=== PATIENT | male | born 1950 | race African-American/Black ===

== ENCOUNTER → 2018-01-15 | Outpatient (CLI) | payer MEDICARE, OTHER | END | disposition home or self-care (01) | LOC: RAD 13:52 | DX: R76.11 Nonspecific reaction to tuberculin skin test without active tuberculosis (principal) | CPT/HCPCS: 71046 ==

== ENCOUNTER 2021-02-14 16:44 | Emergency (ER) | payer MEDICARE, MEDICAID ==
[~2021-02-14] VITALS: Ht 177.8 cm; Wt 100.0 kg
[~2021-02-14 16:44] MED LIST: INSU100V31 SQ; INSU100V8 SQ; SIMV80TA17 PO
--- NOTE | 2021-02-14 17:35 | RAD ---
Exam: CT head INDICATION: Near syncope, dizzy TECHNIQUE: Sequential axial images through the head were obtained without the administration of IV co ntrast. Exposure: One or more of the following in the visualized dose reduction techniques were utilized for this examination: 1. Automated exposure control 2. Adjustment of the MA and/or KV according to patient size 3. Use of iterative of reconstructive technique Comparisons: None FINDINGS: No focal parenchymal lesion or hemorrhage is identified. There is no midline shift or sulcal effaceme nt. Chronic appearing infarct in the right occipital lobe. There is patchy evidence in the periventricula r white matter. Newman-white distinction is preserved. The ventricular system is within normal limits without compression hydrocephalus. The basal cisterns are well maintained. The visualized portions of the paranasal sinuses and mastoid air cells are well-pneumatized. No acute fractures. There is diffuse skin thickening overlying the posterior neck with at least 2 small fluid collections largest measuring 1 cm IMPRESSION: 1. Hypodensity in the right occipital lobe and patchy hypodensity in the periventricular white matte r. This is technically age indeterminate without recent prior imaging. If there are concerns for acut e ischemia MRI would better evaluate. 2. Persistent findings at the posterior neck soft tissues which appear stable when compared to 2016. Correlate with physical exam. Electronically signed by: Nidia Cruz MD (02/14/2021 5:33 PM) [facility]
[2021-02-14 17:52] LABS: BASO % 1 % (0-3); EOS # 0.2 x10^3/uL (0.0-0.7); EOS % 2 % (0-3); HEMATOCRIT 33.9 % (39.0-53.0); HEMOGLOBIN 11.7 g/dL (13.0-17.5); LYMPH # 1.8 x10^3/uL (1.0-4.8); LYMPH % 23 % (24-48); MEAN CORPUSCULAR HEMOGLOBIN 31 pg (25-35); MEAN CORPUSCULAR HGB CONC 35 g/dL (31-37); MEAN CORPUSCULAR VOLUME 88 fL (79-100); MONO # 0.7 x10^3/uL (0.0-1.1); MONO % 9 % (0-9); NEUT # 5.1 x10^3/uL (1.8-7.7); NEUT % 66 % (31-73); PLATELET COUNT 147 x10^3/uL (140-400); RED BLOOD COUNT 3.84 x10^6/uL (4.30-5.70); RED CELL DISTRIBUTION WIDTH 13.8 % (11.5-14.5); WHITE BLOOD COUNT 7.8 x10^3/uL (4.0-11.0)
[2021-02-14 18:07] LABS: CALCIUM 8.7 mg/dL (8.5-10.1); CREATININE 1.8 mg/dL (0.7-1.3); GFR 45.5; POTASSIUM 4.3 mmol/L (3.5-5.1)
[2021-02-14 18:08] LABS: BILIRUBIN,URINE NEGATIVE (NEG); CLARITY,URINE CLEAR; COLOR,URINE YELLOW; NITRITE,URINE NEGATIVE (NEG); PROTEIN,URINE 30 mg/dL (NEG-TRACE)
[2021-02-14 18:13] LABS: ALBUMIN 2.8 g/dL (3.4-5.0); ALBUMIN/GLOBULIN RATIO 0.7 (1.0-1.7); MAGNESIUM 1.9 mg/dL (1.8-2.4); TOTAL BILIRUBIN 0.6 mg/dL (0.2-1.0)
[2021-02-14 18:21] LABS: HYALINE CASTS, URINE FEW /HPF
[2021-02-14 18:23] LABS: RBC,URINE RARE /HPF (0-2); WBC,URINE OCC /HPF (0-4)
[2021-02-14 18:25] LABS: BACTERIA,URINE FEW /HPF (0-FEW)
--- NOTE | 2021-02-14 18:57 | ED.ADGEN ---
Past Medical History Past Medical History: Dementia, Depression, Diabetes-Type II, Hypertension Additional Past Medical Histor: BACK PAIN AND DECREASED VISION Past Surgical History: Other Additional Past Surgical Histo: UNKNOWN AT THIS TIME Smoking Status: Never Smoker Alcohol Use: None Drug Use: None General Adult EDM: Chief Complaint: HYPOTENSION HPI: HPI: Patient is a 70 year old AA male who presents emergency department via EMS with complaints of feeling dizzy and almost passing out at [facility] today. EMS reports that the patient's blood pressure was low on their arrival. Patient had a blood pressure of 70/40 initially which improved to 127/71 by the time of arrival. Patient denies any collapse, he denied hitting his head or any loss of consciousness. Patient currently denies any headache, vision changes, numbness, tingling, weakness, nausea, vomiting, diarrhea, abdominal pain, chest pain, or palpitations. He currently denies any complaints. Patient currently denies pain. Review of the patient's half-way information he does have a history of hypertension, dementia, and legal blindness. While interviewing the patient during the HPI process of bedbug was found on the patient's bedding from the half-way. Patient declined any itchy bites or rashes. Review of Systems: Review of Systems: Complete ROS is negative unless otherwise noted in HPI. Current Medications: Current Medications Medications (Trade) Dose Ordered Sig/Gucci Start Time Stop Time Status Last Admin Dose Admin Sodium Chloride 1,000 ml @ 1,000 mls/hr 1X ONCE 02/14/21 20:45 02/14/21 21:44 DC 02/14/21 20:58 1,000 MLS/HR Allergies: Allergies: Allergies Coded Allergies Type Severity Reaction Last Updated Verified aspirin Allergy Intermediate 12/01/14 No Physical Exam: PE: See Above Constitutional: Well developed, well nourished, no acute distress, non-toxic appearance. [] HENT: Normocephalic, atraumatic, bilateral external ears normal, nose normal, dry mucous membranes. [] Eyes: PERRLA, EOMI, conjunctiva normal, no discharge. [] Neck: Normal range of motion, no stridor. [] Cardiovascular:Heart rate regular rhythm Lungs & Thorax: Respirations even and unlabored, no retractions, no respiratory distress Abdomen: soft, no tenderness Skin: Warm, dry, no erythema, no rash. [] Extremities: No cyanosis, ROM intact, no edema. [] Neurologic: Alert and oriented X 3, normal motor, normal sensory, no focal deficits noted. [] Psychologic: Affect normal, judgement normal, mood normal. [] Current Patient Data: Labs: Laboratory Tests Test 02/14/21 17:40 02/14/21 18:01 White Blood Count 7.8 x10^3/uL (4.0-11.0) Red Blood Count 3.84 x10^6/uL (4.30-5.70) L Hemoglobin 11.7 g/dL (13.0-17.5) L Hematocrit 33.9 % (39.0-53.0) L Mean Corpuscular Volume 88 fL (79-100) Mean Corpuscular Hemoglobin 31 pg (25-35) Mean Corpuscular Hemoglobin Concent 35 g/dL (31-37) Red Cell Distribution Width 13.8 % (11.5-14.5) Platelet Count 147 x10^3/uL (140-400) Neutrophils (%) (Auto) 66 % (31-73) Lymphocytes (%) (Auto) 23 % (24-48) L Monocytes (%) (Auto) 9 % (0-9) Eosinophils (%) (Auto) 2 % (0-3) Basophils (%) (Auto) 1 % (0-3) Neutrophils # (Auto) 5.1 x10^3/uL (1.8-7.7) Lymphocytes # (Auto) 1.8 x10^3/uL (1.0-4.8) Monocytes # (Auto) 0.7 x10^3/uL (0.0-1.1) Eosinophils # (Auto) 0.2 x10^3/uL (0.0-0.7) Basophils # (Auto) 0.0 x10^3/uL (0.0-0.2) Sodium Level 139 mmol/L (136-145) Potassium Level 4.3 mmol/L (3.5-5.1) Chloride Level 104 mmol/L (98-107) Carbon Dioxide Level 28 mmol/L (21-32) Anion Gap 7 (6-14) Blood Urea Nitrogen 26 mg/dL (8-26) Creatinine 1.8 mg/dL (0.7-1.3) H Estimated GFR (Cockcroft-Gault) 45.5 BUN/Creatinine Ratio 14 (6-20) Glucose Level 106 mg/dL (70-99) H Calcium Level 8.7 mg/dL (8.5-10.1) Magnesium Level 1.9 mg/dL (1.8-2.4) Total Bilirubin 0.6 mg/dL (0.2-1.0) Aspartate Amino Transferase (AST) 20 U/L (15-37) Alanine Aminotransferase (ALT) 40 U/L (16-63) Alkaline Phosphatase 105 U/L (46-116) Troponin I Quantitative < 0.017 ng/mL (0.000-0.055) Total Protein 7.0 g/dL (6.4-8.2) Albumin 2.8 g/dL (3.4-5.0) L Albumin/Globulin Ratio 0.7 (1.0-1.7) L Urine Collection Type Unknown Urine Color Yellow Urine Clarity Clear Urine pH 6.0 (<5.0-8.0) Urine Specific Boyd 1.010 (1.000-1.030) Urine Protein 30 mg/dL (NEG-TRACE) Urine Glucose (UA) Negative mg/dL (NEG) Urine Ketones (Stick) Negative mg/dL (NEG) Urine Blood Negative (NEG) Urine Nitrite Negative (NEG) Urine Bilirubin Negative (NEG) Urine Urobilinogen Dipstick 1.0 mg/dL (0.2 mg/dL) Urine Leukocyte Esterase Negative (NEG) Urine RBC Rare /HPF (0-2) Urine WBC Occ /HPF (0-4) Urine Squamous Epithelial Cells Mod /LPF Urine Bacteria Few /HPF (0-FEW) Urine Hyaline Casts Few /HPF Urine Mucus Slight /LPF Laboratory Tests 02/14/21 17:40 Laboratory Tests 02/14/21 17:40 Vital Signs: Vital Signs Date Time Temp Pulse Resp B/P (MAP) Pulse Ox O2 Delivery O2 Flow Rate FiO2 02/14/21 20:17 80 119/74 (89) 99 02/14/21 18:25 Room Air 02/14/21 17:00 99.3 18 99.3 EKG: EK-sinus rhythm, rate 76, no STEMI, read by Dr. Bach[] Heart Score: C/O Chest Pain: No Risk Scores: Score 0 - 3: 2.5% MACE over next 6 weeks - Discharge Home Score 4 - 6: 20.3% MACE over next 6 weeks - Admit for Clinical Observation Score 7 - 10: 72.7% MACE over next 6 weeks - Early Invasive Strategies Radiology/Procedures: Radiology/Procedures: PROCEDURE: CT HEAD WO CONTRAST Exam: CT head INDICATION: Near syncope, dizzy TECHNIQUE: Sequential axial images through the head were obtained without the administration of IV contrast. Exposure: One or more of the following in the visualized dose reduction techniques were utilized for this examination: 1. Automated exposure control 2. Adjustment of the MA and/or KV according to patient size 3. Use of iterative of reconstructive technique Comparisons: None FINDINGS: No focal parenchymal lesion or hemorrhage is identified. There is no midline shift or sulcal effacement. Chronic appearing infarct in the right occipital lobe. There is patchy evidence in the periventricular white matter. Newman-white distinction is preserved. The ventricular system is within normal limits without compression hydrocephalus. The basal cisterns are well maintained. The visualized portions of the paranasal sinuses and mastoid air cells are well- pneumatized. No acute fractures. There is diffuse skin thickening overlying the posterior neck with at least 2 small fluid collections largest measuring 1 cm IMPRESSION: 1. Hypodensity in the right occipital lobe and patchy hypodensity in the periventricular white matter. This is technically age indeterminate without recent prior imaging. If there are concerns for acute ischemia MRI would better evaluate. 2. Persistent findings at the posterior neck soft tissues which appear stable when compared to 2016. Correlate with physical exam. Electronically signed by: Nidia Cruz MD (02/14/2021 5:33 PM) [facility] [] Course & Med Decision Making: Course & Med Decision Making Pertinent Labs and Imaging studies reviewed. (See chart for details) 70-year-old male brought to the emergency department for evaluation after near syncopal episode. Patient denied any complaints. CT the patient's head was negative for any acute findings. CBC revealed 7, hematocrit of 33.9 otherwise unremarkable; CMP revealed a cr eatinine of 1.8, glucose of 106, negative troponin, patient's previous creatinine was also elevated at 1.9; patient's urinalysis was unremarkable. Orthostatic blood pressures were concerning for significant hypertension initially. The patient was given a liter of normal saline, his orthostatic vit al signs improved, patient denied any dizziness after the liter of fluid and reported feeling better. Will discharge patient back to [facility]. I encouraged the patient to eat his meals and increase his fluid intake. [] Dragon Disclaimer: Dragon Disclaimer: This electronic medical record was generated, in whole or in part, using a voice recognition dictation system. Departure Departure Impression: Primary Impression: Orthostatic hypotension Additional Impression: Infestation by bed bug Disposition: HOME / SELF CARE / HOMELESS Condition: STABLE Referrals: DEB CHAMPION MD (PCP) Patient Instructions: Bedbugs, [id number], Orthostatic Hypotension Additional Instructions: Change positions slowly in stages, increase fluids. There was a bedbug found in your bedding on arrival to the ER, please inform your facility of this finding. Follow-up with your primary care doctor in 1 to 2 days, return to the ER if symptoms worsen. Problem Qualifiers BETHEL PEÑALOZA CREDIT REVIEW ANALYST Feb 14, 2021 18:57
--- NOTE | 2021-02-14 19:00 | EKG ---
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
[2021-02-14] MEDS ORDERED: IV NORMAL SALINE 1000ML BAG 1,000 ML IV ONE (20:45)
[2021-02-14 21:47] VITALS: BP 152/75
== END 2021-02-14 23:15 | disposition home or self-care (01) ==
LOC: ER 16:44
DX: I95.1 Orthostatic hypotension (principal); B88.8 Other specified infestations; R51.9 Headache, unspecified; E11.9 Type 2 diabetes mellitus without complications; I10 Essential (primary) hypertension; F03.90 Unspecified dementia, unspecified severity, without behavioral disturbance, psychotic disturbance, mood disturbance, and anxiety; F32.9 Major depressive disorder, single episode, unspecified; Z88.6 Allergy status to analgesic agent
CPT/HCPCS: 36415; 70450; 80053; 81001; 83735; 84484; 85025; 93005; 99285; J7030; 96360

== ENCOUNTER 2021-07-08 23:31 | Inpatient (IN) | payer MEDICARE, MEDICAID ==
[~2021-07-08] VITALS: Ht 180.3 cm; Wt 81.3 kg
[~2021-07-08 23:31] MED LIST changes: +ACET325T9 PO; +ASPI-630 PO; +ATOR80TA72 PO; +CARV12.53 PO; +DICL100G24 TP; +DULA0.75 SQ; +FENT1PAT13 TD; +FLUO40CA2 PO; +LOSA100T14 PO; +MEMA10TA PO; +POLY119P19 PO; +RIVA1PAT23 TP
--- NOTE | 2021-07-09 00:04 | PHYS DOC ---
Past Medical History Past Medical History: Dementia, Depression, Diabetes-Type II, Hypertension Additional Past Medical Histor: BACK PAIN,BLIND, HX OF FALLING,ALZ. Past Medical History Limited secondary to dementia Past Surgical History: Other Additional Past Surgical Histo: UNKNOWN - PT STATES LIVER? Past Surgical History Limited secondary to dementia Smoking Status: Unknown if ever smoked Alcohol Use: None Drug Use: None Social History Limited secondary to dementia General Adult EDM: Chief Complaint: CHEST PAIN-CARDIAC NATURE HPI: HPI: Patient is a 71-year-old male with past medical history of Alzheimer's, type 2 diabetes, and CKD stage III presenting from [facility] for chest pain. Per EMS patient fell yesterday, unsure if this is a witnessed/unwitnessed fall or syncopal episode and began complaining of chest pain tonight. He is A&Ox1 and is able to follow most commands. He denies recent shortness of breath, cough fever, or abdominal pain. History of present illness limited due to baseline decreased mentation due to Alzheimer's dementia. Review of Systems: Review of Systems: Constitutional: Denies fever Respiratory: Denies shortness of breath Cardiovascular: Reports chest pain GI: Denies abdominal pain Musculoskeletal: Denies back pain or joint pain Neurologic: Denies headache or weakness in extremities Review of systems limited due to Alzheimer's dementia Heart Score: C/O Chest Pain: Yes HEART Score for Chest Pain: HEART Score for Chest Pain Response (Comments) Value History Moderately Suspicious 1 ECG Normal 0 Age > 65 2 Risk Factors 1 or 2 Risk Factors 1 Troponin < Normal Limit 0 Total 4 Risk Factors: Risk Factors: DM, Current or recent (<one month) smoker, HTN, HLP, family history of CAD, obesity. Risk Scores: Score 0 - 3: 2.5% MACE over next 6 weeks - Discharge Home Score 4 - 6: 20.3% MACE over next 6 weeks - Admit for Clinical Observation Score 7 - 10: 72.7% MACE over next 6 weeks - Early Invasive Strategies Allergies: Allergies: Allergies Coded Allergies Type Severity Reaction Last Updated Verified aspirin Allergy Intermediate 03/27/21 No sheehan Allergy Intermediate 03/27/21 Yes mayonnaise Allergy Intermediate 03/27/21 Yes onion Allergy Intermediate 03/27/21 Yes Physical Exam: PE: Constitutional: Well nourished, no acute distress, non-toxic appearance HENT: Normocephalic, atraumatic Eyes: Conjunctiva normal, no discharge Neck: Midline tenderness to palpation Lungs & Thorax: No respiratory distress, equal chest rise and fall Abdomen: Soft, no tenderness Skin: Warm, dry, no rash Back: No tenderness, no CVA tenderness Extremities: No tenderness, able to move all extremities Neurologic: Alert and orientedx1, at his baseline mentation, able to follow most commands Psychologic: Affect normal, judgment normal EKG: EKG: Completed at 2344, normal sinus rhythm at 90 bpm, no acute ST segment changes, QRS 96 ms, QT 360 ms, Qtc 444 ms Radiology/Procedures: Radiology/Procedures: PROCEDURE: CT [facility] Compliance Statement: One or more of the following individualized dose reduction techniques were utilized for this examination: 1. Automated exposure control 2. Adjustment of the mA and/or kV according to patient size 3. Use of iterative reconstruction technique CT head and cervical spine without contrast 07/08/2021 1:00 AM INDICATION: Pain status post fall COMPARISON: CT head 03/26/2021 TECHNIQUE: Multiple axial CT images of the head were obtained from skull base through the vertex without intravenous contrast. Multiple axial CT images of the cervical spine were obtained without intravenous contrast. Coronal and sagittal reformats are provided. FINDINGS: Head: Ventricles, sulci and basal cisterns are prominent compatible with moderate generalized cerebral volume loss, stable. Low-attenuation in the periventricular white matter is suggestive of chronic small vessel ischemic changes. Remote ischemic changes identified within the right parieto-occipital lobe and medial left occipital lobe There is no hydrocephalus. Newman-white matter differentiation is normal. There is no acute intracranial hemorrhage. There is no mass, mass effect or midline shift. Posterior fossa is normal in appearance. Visualized portions of the orbits are normal. Paranasal sinuses are well aerated. Mastoid air cells are well aerated. Scalp and calvaria are normal. Cervical spine: Alignment of the cervical spine is normal. Skull base is intact. Craniocervical junction is normal in appearance. Atlantoaxial articulation is normal. Vertebral body heights are maintained without evidence for acute fracture. Mild to moderate facet arthropathy. No significant osseous neural foraminal stenosis. No significant osseous spinal canal stenosis. Transverse foramen are intact. There is diffuse skin thickening along the posterior neck. There is a subcutaneous cyst on the left posterior neck measuring 1.2 x 0.8 cm. Additional septated cyst along the midline measures 0.7 x 0.6 cm. Focal high attenuation within the posterior subcutaneous soft tissues could represent a hematoma measuring approximately 4.4 x 2.7 cm centered at the C2-C3 vertebral level. There is no prevertebral soft tissue swelling. Thyroid gland is normal in ap pearance. Visualized portions of the lung apices are normal without evidence for suspicious pulmonary nodule or infiltrate. IMPRESSION: 1. No acute intracranial hemorrhage. Moderate generalized cerebral volume loss. Low-attenuation in the periventricular white matter is suggestive of chronic small vessel ischemic changes. Remote ischemic changes in the right parieto- occipital lobe and medial left occipital lobe. Findings are stable from the prior examination. 2. No acute fracture or malalignment of the cervical spine. Mild cervical spondylosis. 3. Cutaneous changes along the posterior neck with subcutaneous edema or hematoma identified at the C2-C3 vertebral level. Subcutaneous cystic changes could represent inclusion cysts. Superimposed infection remains a differential consideration. Electronically signed by: Veronica Bennett MD (07/09/2021 1:55 AM) [facility] PROCEDURE: PORTABLE CHEST 1V XR CHEST 1V 07/08/2021 1:00 AM INDICATION: Chest pain COMPARISON: 01/15/2018 TECHNIQUE: Portable frontal view of the chest is provided. FINDINGS: The cardiomediastinal silhouette is within normal limits. Lungs are clear. There are no significant pleural effusions. There is no pulmonary vascular congestion. No pneumothorax. No suspicious osseous abnormality. IMPRESSION: There is no acute cardiopulmonary process. Electronically signed by: Veronica Bennett MD (07/09/2021 1:50 AM) [facility] Course & Med Decision Making: Course & Med Decision Making Pertinent Labs and Imaging studies reviewed. (See chart for details) Patient is a 71-year-old male with past medical history of Alzheimer's dementia, CKD stage III, and diabetes presenting [facility] pain that began tonight after a fall that occurred yesterday. CT head showed no acute hemorrhage. CT neck showed no acute fracture, but evidence of subcutaneous hematoma or edema present at C2-C3. Chest x-ray showed no acute pulmonary process. Labs unremarkable besides pro-BNP of 222. Troponins negative. EKG showed no acute ST segment changes. Heart score of 4 so will admit for observation and further work up. Patient requiring admission for further evaluation and treatment. Discussed with Dr. Frankel (hospitalist) who is in agreement with admission. Dragon Disclaimer: Dragon Disclaimer: This electronic medical record was generated, in whole or in part, using a voice recognition dictation system. Departure Departure Impression: Primary Impression: Chest pain Qualified Codes: R07.9 - Chest pain, unspecified Additional Impressions: Hematoma of neck Qualified Codes: S10.93XA - Contusion of unspecified part of neck, initial encounter Fall Qualified Codes: W19.XXXA - Unspecified fall, initial encounter History of dementia Disposition: ADMITTED INPATIENT Admitting Physician: MADIHA (Marlys) Condition: STABLE Referrals: DEB CHAMPION MD (PCP) ЮЛИЯ BARRY DO Jul 09, 2021 00:04
--- NOTE | 2021-07-09 00:31 | EKG ---
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
[2021-07-09 01:21] LABS: BASO % 1 % (0-3); EOS # 0.1 x10^3/uL (0.0-0.7); EOS % 1 % (0-3); HEMATOCRIT 37.6 % (39.0-53.0); HEMOGLOBIN 12.7 g/dL (13.0-17.5); LYMPH % 31 % (24-48); MEAN CORPUSCULAR HEMOGLOBIN 31 pg (25-35); MEAN CORPUSCULAR HGB CONC 34 g/dL (31-37); MEAN CORPUSCULAR VOLUME 91 fL (79-100); MONO # 0.7 x10^3/uL (0.0-1.1); MONO % 11 % (0-9); NEUT # 3.7 x10^3/uL (1.8-7.7); NEUT % 57 % (31-73); PLATELET COUNT 144 x10^3/uL (140-400); RED BLOOD COUNT 4.13 x10^6/uL (4.30-5.70); RED CELL DISTRIBUTION WIDTH 13.7 % (11.5-14.5); WHITE BLOOD COUNT 6.5 x10^3/uL (4.0-11.0)
[2021-07-09 01:31] LABS: CALCIUM 9.1 mg/dL (8.5-10.1); CREATININE 2.1 mg/dL (0.7-1.3); POTASSIUM 4.7 mmol/L (3.5-5.1)
[2021-07-09 01:36] LABS: ALBUMIN 3.1 g/dL (3.4-5.0); ALBUMIN/GLOBULIN RATIO 0.7 (1.0-1.7); MAGNESIUM 2.2 mg/dL (1.8-2.4); TOTAL BILIRUBIN 0.4 mg/dL (0.2-1.0); TOTAL PROTEIN 7.3 g/dL (6.4-8.2)
--- NOTE | 2021-07-09 01:53 | RAD ---
XR CHEST 1V 07/08/2021 1:00 AM INDICATION: Chest pain COMPARISON: 01/15/2018 TECHNIQUE: Portable frontal view of the chest is provided. FINDINGS: The cardiomediastinal silhouette is within normal limits. Lungs are clear. There are no significant pleural effusions. There is no pulmonary vascular congestion. No pneumothora x. No suspicious osseous abnormality. IMPRESSION: There is no acute cardiopulmonary process. Electronically signed by: Veronica Bennett MD (07/09/2021 1:50 AM) [facility]
--- NOTE | 2021-07-09 01:57 | RAD ---
PQRS Compliance Statement: One or more of the following individualized dose reduction techniques were utilized for this examinat ion: 1. Automated exposure control 2. Adjustment of the mA and/or kV according to patient size 3. Use of iterative reconstruction technique CT head and cervical spine without contrast 07/08/2021 1:00 AM INDICATION: Pain status post fall COMPARISON: CT head 03/26/2021 TECHNIQUE: Multiple axial CT images of the head were obtained from skull base through the vertex with out intravenous contrast. Multiple axial CT images of the cervical spine were obtained without intrav enous contrast. Coronal and sagittal reformats are provided. FINDINGS: Head: Ventricles, sulci and basal cisterns are prominent compatible with moderate generalized cerebral volu me loss, stable. Low-attenuation in the periventricular white matter is suggestive of chronic small v essel ischemic changes. Remote ischemic changes identified within the right parieto-occipital lobe an d medial left occipital lobe There is no hydrocephalus. Newman-white matter differentiation is normal. There is no acute intracranial hemorrhage. There is no mass, mass effect or midline shift. Posterior fossa is normal in appearance. Visualized portions of the orbits are normal. Paranasal sinuses are well aerated. Mastoid air cells a re well aerated. Scalp and calvaria are normal. Cervical spine: Alignment of the cervical spine is normal. Skull base is intact. Craniocervical junction is normal in appearance. Atlantoaxial articulation is normal. Vertebral body heights are maintained without evidence for acute fracture. Mild to moderate facet arthropathy. No significant osseous neural foraminal stenosis. No significant osseous spinal canal stenosis. Transverse foramen are intact. There is diffuse skin thickening along the posterior neck. There is a subcutaneous cyst on the left p osterior neck measuring 1.2 x 0.8 cm. Additional septated cyst along the midline measures 0.7 x 0.6 c m. Focal high attenuation within the posterior subcutaneous soft tissues could represent a hematoma m easuring approximately 4.4 x 2.7 cm centered at the C2-C3 vertebral level. There is no prevertebral s oft tissue swelling. Thyroid gland is normal in appearance. Visualized portions of the lung apices ar e normal without evidence for suspicious pulmonary nodule or infiltrate. IMPRESSION: 1. No acute intracranial hemorrhage. Moderate generalized cerebral volume loss. Low-attenuation in th e periventricular white matter is suggestive of chronic small vessel ischemic changes. Remote ischemi c changes in the right parieto-occipital lobe and medial left occipital lobe. Findings are stable fro m the prior examination. 2. No acute fracture or malalignment of the cervical spine. Mild cervical spondylosis. 3. Cutaneous changes along the posterior neck with subcutaneous edema or hematoma identified at the C 2-C3 vertebral level. Subcutaneous cystic changes could represent inclusion cysts. Superimposed infec tion remains a differential consideration. Electronically signed by: Veronica Bennett MD (07/09/2021 1:55 AM) [facility]
[2021-07-09] MEDS ORDERED: fentaNYL PF VIAL 100 MCG/2 ML VIAL IV ONE (02:00)
[2021-07-09] MEDS ORDERED: DEXTROSE 50% 25 GM / 50ML DISP.SYRIN. IV PRN (02:30)
[2021-07-09] MEDS ORDERED: ONDANSETRON PF 4 MG/2 ML VIAL. IVP PRN (02:30)
[2021-07-09 03:19] LABS: BILIRUBIN,URINE SMALL (NEG); CLARITY,URINE CLEAR; COLOR,URINE YELLOW; NITRITE,URINE NEGATIVE (NEG); PROTEIN,URINE 100 mg/dL (NEG-TRACE)
[2021-07-09 03:28] LABS: BACTERIA,URINE 0 /HPF (0-FEW); HYALINE CASTS, URINE FEW /HPF; RBC,URINE 0 /HPF (0-2); WBC,URINE OCC /HPF (0-4)
[2021-07-09 05:00] VITALS: BP 108/72
[2021-07-09] MEDS ORDERED: LORA0.5T96 PO (06:30)
[2021-07-09] MEDS ORDERED: DIVA250T PO (06:30)
[2021-07-09] MEDS ORDERED: DONE10TA7 PO (06:30)
[2021-07-09] MEDS ORDERED: DULA0.75 SQ (06:30)
[2021-07-09 07:00] VITALS: BP 129/76
[2021-07-09] MEDS: INSULIN LISPRO 300 UNITS/3 ML VIAL. SQ SCH ×3 (08:00→17:00)
[2021-07-09] MEDS ORDERED: ACETAMINOPHEN 325 MG TABLET. PO PRN (09:15)
[2021-07-09] MEDS ORDERED: fentaNYL 12MCG/HR PATCH 1 PATCH PATCH.TD72 TD SCH (09:15)
[2021-07-09] MEDS ORDERED: LORazepam 0.5 MG TABLET PO PRN (09:15)
[2021-07-09] MEDS ORDERED: POLYETHYLENE GLYCOL 3350 17 GM PACKET. PO PRN (09:30)
[2021-07-09] MEDS: LOSARTAN POTASSIUM 50 MG TABLET. PO SCH (09:33)
[2021-07-09] MEDS: ASPIRIN CHEWABLE 81 MG TABLET. PO SCH (09:33)
[2021-07-09] MEDS: MEMANTINE 10 MG TABLET. PO SCH ×2 (09:33→21:26)
[2021-07-09] MEDS: DIVALPROEX EXTENDED RELEASE 250 MG TAB.ER.24H. PO SCH ×3 (09:37→21:27)
[2021-07-09] MEDS: FLUoxetine HCL 20 MG CAPSULE PO SCH (09:39)
--- NOTE | 2021-07-09 09:41 | PDOC1 ---
History and Physical Date of Admission Date of Admission DATE: 07/09/21 TIME: 09:41 Source Source: Chart review, Patient History of Present Illness History of Present Illness Mr. Hardy, is a 71-year-old male demented man, lives in correction sent to ER last night with new chest pain. presenting from [facility] for chest pain. Report was that he had fall or syncopal episode and had new chest pain tonight. A&Ox1 and is pleasnat and talkative an ddoes not complain of pain this AM . He denies recent shortness of breath, cough fever, or abdominal pain. Past Medical History Cardiovascular: CAD, HTN CENTRAL NERVOUS SYSTEM: Dementia Renal/: Chronic renal insuff (3) Endocrine: Diabetes Past Surgical History Past Surgical History: No pertinent history Family History Family History unable dementia Social History Smoke: No ALCOHOL: none Drugs: None Current Problem List Problem List Problems Medical Problems: (1) Chest pain Status: Acute (2) Fall Status: Acute (3) Hematoma of neck Status: Acute (4) History of dementia Status: Acute Current Medications Current Medications Current Medications Fentanyl Citrate (Fentanyl 2ml Vial) 25 mcg 1X ONCE IV Last administered on 07/09/21at 02:51; Start 07/09/21 at 02:00; Stop 07/09/21 at 02:02; Status DC Ondansetron HCl (Zofran) 4 mg PRN Q8HRS PRN IVP NAUSEA/VOMITING; Start 07/09/21 at 02:30; Stop 07/10/21 at 02:29 Insulin Human Lispro (HumaLOG) 0-5 UNITS TIDWMEALS SQ ; Start 07/09/21 at 08:00 Dextrose (Dextrose 50%-Water Syringe) 12.5 gm PRN Q15MIN PRN IV SEE COMMENTS; Start 07/09/21 at 02:30 Acetaminophen (Tylenol) 650 mg PRN Q4HRS PRN PO PAIN; Start 07/09/21 at 09:15 Aspirin (Aspirin Chewable) 81 mg DAILY PO Last administered on 07/09/21at 09:33; Start 07/09/21 at 10:00 Divalproex Sodium (Depakote Er) 250 mg TID PO Last administered on 07/09/21at 09:37; Start 07/09/21 at 10:00 Donepezil HCl (Aricept) 10 mg HS PO ; Start 07/09/21 at 21:00 Fentanyl (Duragesic 12mcg/ Hr Patch) 1 patch Q72H TD Last administered on 07/09/21at 09:38; Start 07/09/21 at 09:15 Lorazepam (Ativan) 0.5 mg PRN BID PRN PO ANXIETY / AGITATION; Start 07/09/21 at 09:15 Memantine (Namenda) 10 mg BID PO Last administered on 07/09/21at 09:33; Start 07/09/21 at 10:00 Polyethylene Glycol (miraLAX PACKET) 17 gm PRN Q12HR PRN PO CONSTIPATION; Start 07/09/21 at 09:30 Fluoxetine HCl (PROzac) 40 mg DAILY PO Last administered on 07/09/21at 09:39; Start 07/09/21 at 10:00 Losartan Potassium (Cozaar) 100 mg DAILY PO Last administered on 07/09/21at 09:33; Start 07/09/21 at 10:00 Active Scripts Active Reported Trulicity (Dulaglutide) 0.75 Mg/0.5 Ml Pen.injctr 0.75 Mg SQ QWE Ativan (Lorazepam) 0.5 Mg Tablet 0.5 Mg PO PRN BID PRN Depakote Er (Divalproex Sodium) 250 Mg Tab.er.24h 250 Mg PO TID Donepezil Hcl 10 Mg Tablet 10 Mg PO HS Trulicity (Dulaglutide) 0.75 Mg/0.5 Ml Pen.injctr 0.75 Mg SQ QWE Namenda (Memantine Hcl) 10 Mg Tablet 1 Tab PO BID Glycolax (Polyethylene Glycol 3350) 119 Gm Powder 17 Gm PO PRN Q12HR PRN Take according to instructions on printed sheet Fluoxetine Hcl 40 Mg Capsule 1 Cap PO DAILY FENTANYL 12mcg/hr (Fentanyl) 1 Each Patch.td72 1 Patch TD Q72H Losartan Potassium 100 Mg Tablet 100 Mg PO DAILY Atorvastatin Calcium 80 Mg Tablet 20 Mg PO QHS Aspirin 81 Mg Tab.chew 1 Tab PO DAILY Tylenol (Acetaminophen) 325 Mg Tablet 650 Mg PO PRN Q4HRS PRN Allergies Allergies: Coded Allergies: aspirin (Unverified Allergy, Intermediate, 03/27/21) Takes 81mg ASA at home sheehan (Verified Allergy, Intermediate, 03/27/21) mayonnaise (Verified Allergy, Intermediate, 03/27/21) onion (Verified Allergy, Intermediate, 03/27/21) ROS Review of System unable due to dementia Physical Exam General: Cooperative, No acute distress, Other (disoriented /) HEENT: Other (cloudy eyes, almost blind) Lungs: Clear to auscultation, Normal air movement Heart: no murmurs, irregularly irregular Abdomen: Soft Extremities: No cyanosis, No edema Skin: No rashes Neuro: Normal tone Psych/Mental Status: Mood NL, Other (pleasant, talkatiev) Vitals Vitals Vital Signs Date Time Temp Pulse Resp B/P (MAP) Pulse Ox O2 Delivery O2 Flow Rate FiO2 07/09/21 09:38 100 Room Air 07/09/21 09:33 83 129/76 07/09/21 07:00 97.3 22 97.3 Labs Labs Laboratory Tests Test 07/09/21 01:00 07/09/21 02:58 07/09/21 04:15 07/09/21 08:25 White Blood Count 6.5 x10^3/uL (4.0-11.0) Red Blood Count 4.13 x10^6/uL (4.30-5.70) Hemoglobin 12.7 g/dL (13.0-17.5) Hematocrit 37.6 % (39.0-53.0) Mean Corpuscular Volume 91 fL (79-100) Mean Corpuscular Hemoglobin 31 pg (25-35) Mean Corpuscular Hemoglobin Concent 34 g/dL (31-37) Red Cell Distribution Width 13.7 % (11.5-14.5) Platelet Count 144 x10^3/uL (140-400) Neutrophils (%) (Auto) 57 % (31-73) Lymphocytes (%) (Auto) 31 % (24-48) Monocytes (%) (Auto) 11 % (0-9) Eosinophils (%) (Auto) 1 % (0-3) Basophils (%) (Auto) 1 % (0-3) Neutrophils # (Auto) 3.7 x10^3/uL (1.8-7.7) Lymphocytes # (Auto) 2.0 x10^3/uL (1.0-4.8) Monocytes # (Auto) 0.7 x10^3/uL (0.0-1.1) Eosinophils # (Auto) 0.1 x10^3/uL (0.0-0.7) Basophils # (Auto) 0.0 x10^3/uL (0.0-0.2) Prothrombin Time 13.0 SEC (11.7-14.0) Prothromb Time International Ratio 1.0 (0.8-1.1) Activated Partial Thromboplast Time 27 SEC (24-38) Sodium Level 141 mmol/L (136-145) Potassium Level 4.7 mmol/L (3.5-5.1) Chloride Level 104 mmol/L (98-107) Carbon Dioxide Level 32 mmol/L (21-32) Anion Gap 5 (6-14) Blood Urea Nitrogen 35 mg/dL (8-26) Creatinine 2.1 mg/dL (0.7-1.3) Estimated GFR (Cockcroft-Gault) 38.0 BUN/Creatinine Ratio 17 (6-20) Glucose Level 111 mg/dL (70-99) Calcium Level 9.1 mg/dL (8.5-10.1) Magnesium Level 2.2 mg/dL (1.8-2.4) Total Bilirubin 0.4 mg/dL (0.2-1.0) Aspartate Amino Transf (AST/SGOT) 23 U/L (15-37) Alanine Aminotransferase (ALT/SGPT) 33 U/L (16-63) Alkaline Phosphatase 100 U/L (46-116) Troponin I High Sensitivity 12 ng/L (4-75) 13 ng/L (4-75) JQ-Ods-B-Type Natriuretic Peptide 222 pg/mL (0-124) Total Protein 7.3 g/dL (6.4-8.2) Albumin 3.1 g/dL (3.4-5.0) Albumin/Globulin Ratio 0.7 (1.0-1.7) Lipase 181 U/L (73-393) Urine Collection Type Void Urine Color Yellow Urine Clarity Clear Urine pH 5.0 (<5.0-8.0) Urine Specific [place] 1.020 (1.000-1.030) Urine Protein 100 mg/dL (NEG-TRACE) Urine Glucose (UA) Negative mg/dL (NEG) Urine Ketones (Stick) Trace mg/dL (NEG) Urine Blood Negative (NEG) Urine Nitrite Negative (NEG) Urine Bilirubin Small (NEG) Urine Urobilinogen Dipstick 1.0 mg/dL (0.2 mg/dL) Urine Leukocyte Esterase Negative (NEG) Urine RBC 0 /HPF (0-2) Urine WBC Occ /HPF (0-4) Urine Squamous Epithelial Cells Occ /LPF Urine Bacteria 0 /HPF (0-FEW) Urine Hyaline Casts Few /HPF Urine Mucus Mod /LPF SARS-CoV-2 Antigen (Rapid) Negative (NEGATIVE) Test 07/09/21 09:23 Glucose (Fingerstick) 91 mg/dL (70-99) Laboratory Tests Test 07/09/21 01:00 07/09/21 02:58 07/09/21 04:15 07/09/21 08:25 White Blood Count 6.5 x10^3/uL (4.0-11.0) Red Blood Count 4.13 x10^6/uL (4.30-5.70) Hemoglobin 12.7 g/dL (13.0-17.5) Hematocrit 37.6 % (39.0-53.0) Mean Corpuscular Volume 91 fL (79-100) Mean Corpuscular Hemoglobin 31 pg (25-35) Mean Corpuscular Hemoglobin Concent 34 g/dL (31-37) Red Cell Distribution Width 13.7 % (11.5-14.5) Platelet Count 144 x10^3/uL (140-400) Neutrophils (%) (Auto) 57 % (31-73) Lymphocytes (%) (Auto) 31 % (24-48) Monocytes (%) (Auto) 11 % (0-9) Eosinophils (%) (Auto) 1 % (0-3) Basophils (%) (Auto) 1 % (0-3) Neutrophils # (Auto) 3.7 x10^3/uL (1.8-7.7) Lymphocytes # (Auto) 2.0 x10^3/uL (1.0-4.8) Monocytes # (Auto) 0.7 x10^3/uL (0.0-1.1) Eosinophils # (Auto) 0.1 x10^3/uL (0.0-0.7) Basophils # (Auto) 0.0 x10^3/uL (0.0-0.2) Prothrombin Time 13.0 SEC (11.7-14.0) Prothromb Time International Ratio 1.0 (0.8-1.1) Activated Partial Thromboplast Time 27 SEC (24-38) Sodium Level 141 mmol/L (136-145) Potassium Level 4.7 mmol/L (3.5-5.1) Chloride Level 104 mmol/L (98-107) Carbon Dioxide Level 32 mmol/L (21-32) Anion Gap 5 (6-14) Blood Urea Nitrogen 35 mg/dL (8-26) Creatinine 2.1 mg/dL (0.7-1.3) Estimated GFR (Cockcroft-Gault) 38.0 BUN/Creatinine Ratio 17 (6-20) Glucose Level 111 mg/dL (70-99) Calcium Level 9.1 mg/dL (8.5-10.1) Magnesium Level 2.2 mg/dL (1.8-2.4) Total Bilirubin 0.4 mg/dL (0.2-1.0) Aspartate Amino Transf (AST/SGOT) 23 U/L (15-37) Alanine Aminotransferase (ALT/SGPT) 33 U/L (16-63) Alkaline Phosphatase 100 U/L (46-116) Troponin I High Sensitivity 12 ng/L (4-75) 13 ng/L (4-75) JJ-Yhk-H-Type Natriuretic Peptide 222 pg/mL (0-124) Total Protein 7.3 g/dL (6.4-8.2) Albumin 3.1 g/dL (3.4-5.0) Albumin/Globulin Ratio 0.7 (1.0-1.7) Lipase 181 U/L (73-393) Urine Collection Type Void Urine Color Yellow Urine Clarity Clear Urine pH 5.0 (<5.0-8.0) Urine Specific [place] 1.020 (1.000-1.030) Urine Protein 100 mg/dL (NEG-TRACE) Urine Glucose (UA) Negative mg/dL (NEG) Urine Ketones (Stick) Trace mg/dL (NEG) Urine Blood Negative (NEG) Urine Nitrite Negative (NEG) Urine Bilirubin Small (NEG) Urine Urobilinogen Dipstick 1.0 mg/dL (0.2 mg/dL) Urine Leukocyte Esterase Negative (NEG) Urine RBC 0 /HPF (0-2) Urine WBC Occ /HPF (0-4) Urine Squamous Epithelial Cells Occ /LPF Urine Bacteria 0 /HPF (0-FEW) Urine Hyaline Casts Few /HPF Urine Mucus Mod /LPF SARS-CoV-2 Antigen (Rapid) Negative (NEGATIVE) Test 07/09/21 09:23 Glucose (Fingerstick) 91 mg/dL (70-99) VTE Prophylaxis Ordered VTE Prophylaxis Devices: No VTE Pharmacological Prophylaxi: Yes Assessment/Plan Assessment/Plan chest pain, angina, r/o ACS dementia weakness and debility 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
[2021-07-09 11:24] VITALS: BP 101/65
[2021-07-09 14:17] VITALS: BP 124/72
[2021-07-09] MEDS: ENOXAPARIN 40 MG/0.4 ML SYRINGE. SQ SCH (16:05)
--- NOTE | 2021-07-09 18:04 | PDOC2 ---
CONSULT Date of Consult Date of Consult DATE: 07/09/21 TIME: 17:59 Reason for Consult Reason for Consult: Chest pain Referring Physician Referring Physician: Dr. Cunningham Identification/Chief Complaint Chief Complaint Chest pain Source Source: Chart review, Patient History of Present Illness Reason for Visit: The patient is a 71-year-old male from a shelter who apparently had a fall yesterday. He was transferred to [facility] for episodes of chest pain. He has a history of dementia, diabetes and hypertension but no documented history of coronary disease or heart failure. Initial work-up included a's EKG check that showed a sinus rhythm with no ischemic changes, normal troponin level, chest x- ray with no acute cardiopulmonary processes and a CT head scan with no acute cranial hemorrhage. The patient had monitored overnight and he remained stable. This morning he appears to be feeling better. His chest discomfort has largely resolved. He is a difficult historian secondary to his dementia. Past Medical History Cardiovascular: HTN CENTRAL NERVOUS SYSTEM: Dementia Renal/: Chronic renal insuff Endocrine: Diabetes Past Surgical History Past Surgical History: No pertinent history Family History Family History: Other (Unable to obtain a family history from the patient) Social History No ALCOHOL: none Drugs: None Current Problem List Problem List Problems Medical Problems: (1) Chest pain Status: Acute (2) Fall Status: Acute (3) Hematoma of neck Status: Acute (4) History of dementia Status: Acute Current Medications Current Medications Current Medications Fentanyl Citrate (Fentanyl 2ml Vial) 25 mcg 1X ONCE IV Last administered on 07/09/21at 02:51; Start 07/09/21 at 02:00; Stop 07/09/21 at 02:02; Status DC Ondansetron HCl (Zofran) 4 mg PRN Q8HRS PRN IVP NAUSEA/VOMITING; Start 07/09/21 at 02:30; Stop 07/10/21 at 02:29 Insulin Human Lispro (HumaLOG) 0-5 UNITS TIDWMEALS SQ ; Start 07/09/21 at 08:00 Dextrose (Dextrose 50%-Water Syringe) 12.5 gm PRN Q15MIN PRN IV SEE COMMENTS; Start 07/09/21 at 02:30 Acetaminophen (Tylenol) 650 mg PRN Q4HRS PRN PO PAIN; Start 07/09/21 at 09:15 Aspirin (Aspirin Chewable) 81 mg DAILY PO Last administered on 07/09/21at 09:33; Start 07/09/21 at 10:00 Divalproex Sodium (Depakote Er) 250 mg TID PO Last administered on 07/09/21at 14:25; Start 07/09/21 at 10:00 Donepezil HCl (Aricept) 10 mg HS PO ; Start 07/09/21 at 21:00 Fentanyl (Duragesic 12mcg/ Hr Patch) 1 patch Q72H TD Last administered on 07/09/21at 09:38; Start 07/09/21 at 09:15 Lorazepam (Ativan) 0.5 mg PRN BID PRN PO ANXIETY / AGITATION; Start 07/09/21 at 09:15 Memantine (Namenda) 10 mg BID PO Last administered on 07/09/21at 09:33; Start 07/09/21 at 10:00 Polyethylene Glycol (miraLAX PACKET) 17 gm PRN Q12HR PRN PO CONSTIPATION; Start 07/09/21 at 09:30 Fluoxetine HCl (PROzac) 40 mg DAILY PO Last administered on 07/09/21at 09:39; Start 07/09/21 at 10:00 Losartan Potassium (Cozaar) 100 mg DAILY PO Last administered on 07/09/21at 09:33; Start 07/09/21 at 10:00 Enoxaparin Sodium (Lovenox Per Pharmacy Prophylaxis Dosing) 1 each PRN DAILY PRN MC SEE COMMENTS; Start 07/09/21 at 15:15 Enoxaparin Sodium (Lovenox 40mg Syringe) 40 mg Q24H SQ Last administered on 07/09/21at 16:05; Start 07/09/21 at 16:00 Active Scripts Active Reported Trulicity (Dulaglutide) 0.75 Mg/0.5 Ml Pen.injctr 0.75 Mg SQ QWE Ativan (Lorazepam) 0.5 Mg Tablet 0.5 Mg PO PRN BID PRN Depakote Er (Divalproex Sodium) 250 Mg Tab.er.24h 250 Mg PO TID Donepezil Hcl 10 Mg Tablet 10 Mg PO HS Trulicity (Dulaglutide) 0.75 Mg/0.5 Ml Pen.injctr 0.75 Mg SQ QWE Namenda (Memantine Hcl) 10 Mg Tablet 1 Tab PO BID Glycolax (Polyethylene Glycol 3350) 119 Gm Powder 17 Gm PO PRN Q12HR PRN Take according to instructions on printed sheet Fluoxetine Hcl 40 Mg Capsule 1 Cap PO DAILY FENTANYL 12mcg/hr (Fentanyl) 1 Each Patch.td72 1 Patch TD Q72H Losartan Potassium 100 Mg Tablet 100 Mg PO DAILY Atorvastatin Calcium 80 Mg Tablet 20 Mg PO QHS Aspirin 81 Mg Tab.chew 1 Tab PO DAILY Tylenol (Acetaminophen) 325 Mg Tablet 650 Mg PO PRN Q4HRS PRN Allergies Allergies: Coded Allergies: aspirin (Unverified Allergy, Intermediate, 03/27/21) Takes 81mg ASA at home sheehan (Verified Allergy, Intermediate, 03/27/21) mayonnaise (Verified Allergy, Intermediate, 03/27/21) onion (Verified Allergy, Intermediate, 03/27/21) ROS General: YES: Fatigue PSYCHOLOGICAL ROS: YES: Concentration difficultie Cardiovascular: yes Chest Pain Neurological: Yes Confusion Physical Exam General: No acute distress HEENT: Atraumatic Lungs: Clear to auscultation Heart: Regular rate Abdomen: Normal bowel sounds Vitals VITALS Vital Signs Date Time Temp Pulse Resp B/P (MAP) Pulse Ox O2 Delivery O2 Flow Rate FiO2 07/09/21 14:17 97.1 77 18 124/72 (89) 100 Room Air 97.1 Labs Labs Laboratory Tests Test 07/09/21 01:00 07/09/21 02:58 07/09/21 04:15 07/09/21 08:25 White Blood Count 6.5 x10^3/uL (4.0-11.0) Red Blood Count 4.13 x10^6/uL (4.30-5.70) Hemoglobin 12.7 g/dL (13.0-17.5) Hematocrit 37.6 % (39.0-53.0) Mean Corpuscular Volume 91 fL (79-100) Mean Corpuscular Hemoglobin 31 pg (25-35) Mean Corpuscular Hemoglobin Concent 34 g/dL (31-37) Red Cell Distribution Width 13.7 % (11.5-14.5) Platelet Count 144 x10^3/uL (140-400) Neutrophils (%) (Auto) 57 % (31-73) Lymphocytes (%) (Auto) 31 % (24-48) Monocytes (%) (Auto) 11 % (0-9) Eosinophils (%) (Auto) 1 % (0-3) Basophils (%) (Auto) 1 % (0-3) Neutrophils # (Auto) 3.7 x10^3/uL (1.8-7.7) Lymphocytes # (Auto) 2.0 x10^3/uL (1.0-4.8) Monocytes # (Auto) 0.7 x10^3/uL (0.0-1.1) Eosinophils # (Auto) 0.1 x10^3/uL (0.0-0.7) Basophils # (Auto) 0.0 x10^3/uL (0.0-0.2) Prothrombin Time 13.0 SEC (11.7-14.0) Prothromb Time International Ratio 1.0 (0.8-1.1) Activated Partial Thromboplast Time 27 SEC (24-38) Sodium Level 141 mmol/L (136-145) Potassium Level 4.7 mmol/L (3.5-5.1) Chloride Level 104 mmol/L (98-107) Carbon Dioxide Level 32 mmol/L (21-32) Anion Gap 5 (6-14) Blood Urea Nitrogen 35 mg/dL (8-26) Creatinine 2.1 mg/dL (0.7-1.3) Estimated GFR (Cockcroft-Gault) 38.0 BUN/Creatinine Ratio 17 (6-20) Glucose Level 111 mg/dL (70-99) Calcium Level 9.1 mg/dL (8.5-10.1) Magnesium Level 2.2 mg/dL (1.8-2.4) Total Bilirubin 0.4 mg/dL (0.2-1.0) Aspartate Amino Transf (AST/SGOT) 23 U/L (15-37) Alanine Aminotransferase (ALT/SGPT) 33 U/L (16-63) Alkaline Phosphatase 100 U/L (46-116) Troponin I High Sensitivity 12 ng/L (4-75) 13 ng/L (4-75) ST-Nqr-Y-Type Natriuretic Peptide 222 pg/mL (0-124) Total Protein 7.3 g/dL (6.4-8.2) Albumin 3.1 g/dL (3.4-5.0) Albumin/Globulin Ratio 0.7 (1.0-1.7) Lipase 181 U/L (73-393) Urine Collection Type Void Urine Color Yellow Urine Clarity Clear Urine pH 5.0 (<5.0-8.0) Urine Specific [place] 1.020 (1.000-1.030) Urine Protein 100 mg/dL (NEG-TRACE) Urine Glucose (UA) Negative mg/dL (NEG) Urine Ketones (Stick) Trace mg/dL (NEG) Urine Blood Negative (NEG) Urine Nitrite Negative (NEG) Urine Bilirubin Small (NEG) Urine Urobilinogen Dipstick 1.0 mg/dL (0.2 mg/dL) Urine Leukocyte Esterase Negative (NEG) Urine RBC 0 /HPF (0-2) Urine WBC Occ /HPF (0-4) Urine Squamous Epithelial Cells Occ /LPF Urine Bacteria 0 /HPF (0-FEW) Urine Hyaline Casts Few /HPF Urine Mucus Mod /LPF SARS-CoV-2 RNA (RADHA) Negative (Negative) SARS-CoV-2 Antigen (Rapid) Negative (NEGATIVE) Test 07/09/21 09:23 07/09/21 11:10 07/09/21 11:24 07/09/21 16:33 Glucose (Fingerstick) 91 mg/dL (70-99) 92 mg/dL (70-99) 106 mg/dL (70-99) Troponin I High Sensitivity 12 ng/L (4-75) Laboratory Tests Test 07/09/21 01:00 07/09/21 02:58 07/09/21 04:15 07/09/21 08:25 White Blood Count 6.5 x10^3/uL (4.0-11.0) Red Blood Count 4.13 x10^6/uL (4.30-5.70) Hemoglobin 12.7 g/dL (13.0-17.5) Hematocrit 37.6 % (39.0-53.0) Mean Corpuscular Volume 91 fL (79-100) Mean Corpuscular Hemoglobin 31 pg (25-35) Mean Corpuscular Hemoglobin Concent 34 g/dL (31-37) Red Cell Distribution Width 13.7 % (11.5-14.5) Platelet Count 144 x10^3/uL (140-400) Neutrophils (%) (Auto) 57 % (31-73) Lymphocytes (%) (Auto) 31 % (24-48) Monocytes (%) (Auto) 11 % (0-9) Eosinophils (%) (Auto) 1 % (0-3) Basophils (%) (Auto) 1 % (0-3) Neutrophils # (Auto) 3.7 x10^3/uL (1.8-7.7) Lymphocytes # (Auto) 2.0 x10^3/uL (1.0-4.8) Monocytes # (Auto) 0.7 x10^3/uL (0.0-1.1) Eosinophils # (Auto) 0.1 x10^3/uL (0.0-0.7) Basophils # (Auto) 0.0 x10^3/uL (0.0-0.2) Prothrombin Time 13.0 SEC (11.7-14.0) Prothromb Time International Ratio 1.0 (0.8-1.1) Activated Partial Thromboplast Time 27 SEC (24-38) Sodium Level 141 mmol/L (136-145) Potassium Level 4.7 mmol/L (3.5-5.1) Chloride Level 104 mmol/L (98-107) Carbon Dioxide Level 32 mmol/L (21-32) Anion Gap 5 (6-14) Blood Urea Nitrogen 35 mg/dL (8-26) Creatinine 2.1 mg/dL (0.7-1.3) Estimated GFR (Cockcroft-Gault) 38.0 BUN/Creatinine Ratio 17 (6-20) Glucose Level 111 mg/dL (70-99) Calcium Level 9.1 mg/dL (8.5-10.1) Magnesium Level 2.2 mg/dL (1.8-2.4) Total Bilirubin 0.4 mg/dL (0.2-1.0) Aspartate Amino Transf (AST/SGOT) 23 U/L (15-37) Alanine Aminotransferase (ALT/SGPT) 33 U/L (16-63) Alkaline Phosphatase 100 U/L (46-116) Troponin I High Sensitivity 12 ng/L (4-75) 13 ng/L (4-75) KI-Omb-I-Type Natriuretic Peptide 222 pg/mL (0-124) Total Protein 7.3 g/dL (6.4-8.2) Albumin 3.1 g/dL (3.4-5.0) Albumin/Globulin Ratio 0.7 (1.0-1.7) Lipase 181 U/L (73-393) Urine Collection Type Void Urine Color Yellow Urine Clarity Clear Urine pH 5.0 (<5.0-8.0) Urine Specific [place] 1.020 (1.000-1.030) Urine Protein 100 mg/dL (NEG-TRACE) Urine Glucose (UA) Negative mg/dL (NEG) Urine Ketones (Stick) Trace mg/dL (NEG) Urine Blood Negative (NEG) Urine Nitrite Negative (NEG) Urine Bilirubin Small (NEG) Urine Urobilinogen Dipstick 1.0 mg/dL (0.2 mg/dL) Urine Leukocyte Esterase Negative (NEG) Urine RBC 0 /HPF (0-2) Urine WBC Occ /HPF (0-4) Urine Squamous Epithelial Cells Occ /LPF Urine Bacteria 0 /HPF (0-FEW) Urine Hyaline Casts Few /HPF Urine Mucus Mod /LPF SARS-CoV-2 RNA (RADHA) Negative (Negative) SARS-CoV-2 Antigen (Rapid) Negative (NEGATIVE) Test 07/09/21 09:23 07/09/21 11:10 07/09/21 11:24 07/09/21 16:33 Glucose (Fingerstick) 91 mg/dL (70-99) 92 mg/dL (70-99) 106 mg/dL (70-99) Troponin I High Sensitivity 12 ng/L (4-75) Images Images As above. Assessment/Plan Assessment/Plan 1. Chest pain. Pain has largely resolved. Initial EKG shows no ischemia. Initial troponin is normal. Would recheck troponin. Continue present treatment. We will check an echocardiogram in the setting along with his heart murmur and hypertension. 2. Dementia. Patient is comfortable in bed at this time. 3. Hypertension. Blood pressure is under control. Continue present treatment. 4. Chronic kidney disease. Monitoring lab. Potassium of 4.7 and creatinine of 2.1. 5. Diabetes mellitus. Continue present medications as per the primary service. VALERIANO ALANIS MD Jul 09, 2021 18:04
[2021-07-09 19:25] VITALS: BP 122/75
[2021-07-09] MEDS ORDERED: DONEPEZIL HCL 10 MG TABLET. PO SCH (21:00)
[2021-07-09 22:44] VITALS: BP 136/80
[2021-07-10 02:47] VITALS: BP 152/87
[2021-07-10 06:30] VITALS: BP 118/81
[2021-07-10] MEDS: INSULIN LISPRO 300 UNITS/3 ML VIAL. SQ SCH ×2 (08:00→12:00)
[2021-07-10] MEDS: FLUoxetine HCL 20 MG CAPSULE PO SCH (09:11)
[2021-07-10] MEDS: DIVALPROEX EXTENDED RELEASE 250 MG TAB.ER.24H. PO SCH ×2 (09:11→14:02)
[2021-07-10] MEDS: ASPIRIN CHEWABLE 81 MG TABLET. PO SCH (09:11)
[2021-07-10] MEDS: LOSARTAN POTASSIUM 50 MG TABLET. PO SCH (09:12)
[2021-07-10] MEDS: MEMANTINE 10 MG TABLET. PO SCH (09:12)
[2021-07-10 11:00] VITALS: BP 146/82
--- NOTE | 2021-07-10 11:30 | PDOC ---
MATEO OQUENDO APRN 07/10/21 1130: CARDIO Progress Notes Date and Time Date of Service 07/10/21 Time of Evaluation 1120 Subjective Subjective: No Chest Pain, No shortness of breath, No Palpitations, No Dizziness Vitals Vitals Vital Signs Date Time Temp Pulse Resp B/P (MAP) Pulse Ox O2 Delivery O2 Flow Rate FiO2 07/10/21 11:00 98.0 87 16 146/82 (103) 100 Room Air 98.0 Weight Weight [ ] Input and Output Intake and Output Intake and Output 07/10/21 07:00 Intake Total 1940 ml Output Total 700 ml Balance 1240 ml Intake Oral 1940 ml Output Urine Total 700 ml Laboratory Labs Laboratory Tests Test 07/09/21 16:33 07/09/21 20:26 07/10/21 07:16 Glucose (Fingerstick) 106 mg/dL (70-99) 102 mg/dL (70-99) 70 mg/dL (70-99) Physical Exam HEENT: Neck Supple W Full Motion Chest: Symmetric LUNGS: Clear to Auscultation Heart: RRR, no murmurs, irregularly irregular Abdomen: Soft N/T Extremities: No Edema Neurology: alert, follow commands Assessment Assessment 1. Chest pain, atypical. AMI ruled out. 2. Hypertension; controlled 3. Hyperlipidemia 4. CKD 5. Diabetes, II 6. Dementia Recommendations ASA therapy Lipids Echo to assess LV systolic function Probable outpatient ischemic evaluation Supportive care Justicifation of Admission Dx: Justifications for Admission: Justification of Admission Dx: Yes VALERIANO ALANIS MD 07/10/21 1720: CARDIO Progress Notes Assessment Assessment Patient seen and examined I agree with our nurse practitioners assessment and plan. Chest pain, atypical. AMI ruled out. Continue medical treatment including aspirin. Echo to evaluate LV function Hypertension; controlled Hyperlipidemia. Checking lab. CKD Diabetes, II Dementia MATEO OQUENDO APRN Jul 10, 2021 11:30 VALERIANO ALANIS MD Jul 10, 2021 17:20
[2021-07-10 12:57] LABS: CHOLESTEROL/HDL RATIO 3.2
--- NOTE | 2021-07-10 14:34 | DISCH ---
DISCHARGE INSTRUCTIONS Condition on Discharge Condition on Discharge: Stable Activity After Discharge Activity Instructions for Disc: Activity as tolerated Exercise Instruction after Dis: Walk 15 min, 3 x per day, Progress as tolerated Driving Instructions after Dis: Do not drive today Weight Bearing Status after Di: As tolerated Diet after Discharge Diet after Discharge: Cardiac Diet Texture: Regular Liquid Texture: Thin Liquid Swallowing Supervision: 1 to 1 feeding Checks after Discharge Checks after discharge: Check blood press - daily, Check blood sugar, ac/hs Follow-Up Follow up with: PCP within 2 weeks of discharge Follow Up With: Cardiology as needed or as scheduled Treatment/Equipment after DC Adaptive Equipment Issued: None, ILIANA Farris MD Jul 10, 2021 14:34
[2021-07-10] MEDS: ENOXAPARIN 40 MG/0.4 ML SYRINGE. SQ SCH (14:51)
--- NOTE | 2021-07-10 15:09 | NUR ---
SS following for discharge planning. SS reviewed pt chart and discussed with pt RN. Pt is LTC resident from [place], ; fax [phone]. Pt is currently on room air. Discharge order on the chart for return to [facility]. Discharge orders phoned and faxed to [facility]. Pt will discharge today and return to [facility] at 1630. [facility] to provide transportation. Pt and pt's RN notified.
[2021-07-10 15:21] VITALS: BP 108/70
--- NOTE | 2021-07-10 15:52 | CARD ---
MR#: [id number] Date of Study: 07/10/2021 Ordering Physician: MATEO OQUENDO, Referring Physician: MATEO OQUENDO, Tech: Don Johansen [facility] APPROVED REPORT EXAM: LIMITED Two-dimensional and M-mode echocardiogram with Doppler and color Doppler. Other Information Quality : FairHR: 81bpm Rhythm : NSRTechnically limited study due to dementia and smoking. INDICATION Chest Pain RISK FACTORS Hypertension Hyperlipidemia Diabetes Smoking 2D DIMENSIONS Left Atrium(2D)3.8 (1.6-4.0cm)IVSd0.9 (0.7-1.1cm) Aortic Root(2D)3.9 (2.0-3.7cm)LVDd3.0 (3.9-5.9cm) LVOT Diameter2.1 (1.8-2.4cm)PWd0.9 (0.7-1.1cm) LVDs1.7 (2.5-4.0cm) Pulmonary Valve PV Peak Jvczqavr30.6cm/sPV Peak Grad.2mmHg LEFT VENTRICLE The left ventricle is normal size. There is normal left ventricular wall thickness. The left ventricu lar systolic function is normal. The ejection fraction is estimated at 55%. There is normal LV segmen ann wall motion. No left ventricle thrombus noted on this study. There is no ventricular septal defec t visualized. There is no left ventricular aneurysm. There is no mass noted in the left ventricle. RIGHT VENTRICLE The right ventricle is normal size. There is normal right ventricular wall thickness. The right ventr icular systolic function is normal. ATRIA The left atrium size is normal. The right atrium size is normal. The interatrial septum is intact wit h no evidence for an atrial septal defect or patent foramen ovale as noted on 2-D or Doppler imaging. AORTIC VALVE The aortic valve is not well seen. Doppler and Color Flow revealed no significant aortic regurgitatio n. There is no significant aortic valvular stenosis. MITRAL VALVE The mitral valve is normal in structure and function. There is no evidence of mitral valve prolapse. There is no mitral valve stenosis. Doppler and Color Flow revealed no mitral valve regurgitation note d. TRICUSPID VALVE The tricuspid valve is normal in structure and function. Doppler and Color Flow revealed trace tricus pid regurgitation. There is no tricuspid valve prolapse or vegetation. There is no tricuspid valve st enosis. PULMONIC VALVE The pulmonic valve is not well seen. Doppler and Color Flow revealed no pulmonic valvular regurgitati on. There is no pulmonic valvular stenosis. PERICARDIAL EFFUSION There is no evidence of significant pericardial effusion. Critical Notification Critical Value: No <Conclusion> The left ventricular systolic function is normal. The ejection fraction is estimated at 55%. There is normal LV segmental wall motion. Trace tricuspid regurgitation. There is no evidence of significant pericardial effusion. Signed by : Luis Enrique Cobb, Electronically Approved : 07/10/2021 15:51:37
--- NOTE | 2021-07-10 16:30 | NUR ---
Discharge Note: [facility] [address] [place] [address] Discharge instructions and discharge home medications reviewed with Other facility and a copy given. All questions have been answered and understanding verbalized. Patient discharged to [facility] with transport via wheelchair.
--- NOTE | 2021-07-20 10:35 | PDOC3 ---
[facility]-Discharge Summary Discharge Diagnosis: Discharge Diagnosis: 1. Chest pain, atypical. AMI ruled out. 2. Hypertension; controlled 3. Hyperlipidemia 4. CKD 5. Diabetes, II 6. Dementia Consults: Consults: cardiology Recommendations ASA therapy Lipids Echo to assess LV systolic function Probable outpatient ischemic evaluation Supportive care Hospital Course: Hospital Course: 71-year-old male demented man, lives [place] sent to ER last night with new chest pain. presenting from [facility] for chest pain. Report was that he had fall or syncopal episode and had new chest pain tonight. A&Ox1 and is pleasnat and talkative an ddoes not complain of pain this AM . He denies recent shortness of breath, cough fever, or abdominal pain. By day of discharge, pt was clinically stable, chest pain free and ready for discharge. Rest of hospital course was uneventful Disposition: Disposition/Orders: D/C to Home Activity: Activity: Resume previous activity Diet: Diet: Cardiac Medications: Home Meds Reported Medications Dulaglutide (Trulicity) 0.75 Mg/0.5 Ml Pen.injctr, 0.75 MG SQ QWE for DM, EACH 07/09/21 Lorazepam (ATIVAN) 0.5 Mg Tablet, 0.5 MG PO PRN BID PRN for ANXIETY / AGITATION, TAB 07/09/21 Divalproex Sodium (DEPAKOTE ER) 250 Mg Tab.er.24h, 250 MG PO TID for DEMENTIA, TAB.SR 07/09/21 Donepezil Hcl (DONEPEZIL HCL) 10 Mg Tablet, 10 MG PO HS for DEMENTIA, TAB 07/09/21 Dulaglutide (Trulicity) 0.75 Mg/0.5 Ml Pen.injctr, 0.75 MG SQ QWE for DM, EACH 03/26/21 Memantine Hcl (NAMENDA) 10 Mg Tablet, 1 TAB PO BID for dementia, #180 TAB 1 Refill 03/26/21 Polyethylene Glycol 3350 (GLYCOLAX) 119 Gm Powder, 17 GM PO PRN Q12HR PRN for CONSTIPATION, #527 GM 0 Refills Take according to instructions on printed sheet 03/26/21 Fluoxetine Hcl (FLUOXETINE HCL) 40 Mg Capsule, 1 CAP PO DAILY for depression, #30 CAP 2 Refills 03/26/21 Fentanyl (FENTANYL 12mcg/hr) 1 Each Patch.td72, 1 PATCH TD Q72H for pain, PATCH 03/26/21 Losartan Potassium (LOSARTAN POTASSIUM) 100 Mg Tablet, 100 MG PO DAILY for HYPERTENSION, TAB 03/26/21 Atorvastatin Calcium (Atorvastatin Calcium) 80 Mg Tablet, 20 MG PO QHS for FOR HIGH CHOLESTEROL, TAB 03/26/21 Aspirin (ASPIRIN) 81 Mg Tab.chew, 1 TAB PO DAILY for circulation, #30 TAB 3 Refills 03/26/21 Acetaminophen (TYLENOL) 325 Mg Tablet, 650 MG PO PRN Q4HRS PRN for PAIN, TAB 03/26/21 Scheduled Aspirin (Aspirin), 1 TAB PO DAILY, (Reported) Atorvastatin Calcium (Atorvastatin Calcium), 20 MG PO QHS, (Reported) Divalproex Sodium (Depakote Er), 250 MG PO TID, (Reported) Donepezil Hcl (Donepezil Hcl), 10 MG PO HS, (Reported) Dulaglutide (Trulicity), 0.75 MG SQ QWE, (Reported) Dulaglutide (Trulicity), 0.75 MG SQ QWE, (Reported) Fentanyl (FENTANYL 12mcg/hr), 1 PATCH TD Q72H, (Reported) Fluoxetine Hcl (Fluoxetine Hcl), 1 CAP PO DAILY, (Reported) Losartan Potassium (Losartan Potassium), 100 MG PO DAILY, (Reported) Memantine Hcl (Namenda), 1 TAB PO BID, (Reported) Scheduled PRN Acetaminophen (Tylenol), 650 MG PO PRN Q4HRS PRN for PAIN, (Reported) Lorazepam (Ativan), 0.5 MG PO PRN BID PRN for ANXIETY / AGITATION, (Reported) Polyethylene Glycol 3350 (Glycolax), 17 GM PO PRN Q12HR PRN for CONSTIPATION, (Reported) Total Time: Total Time: Total time spent was 33 minutes in preparing scripts, discharge planning with SW and RN, and preparing this discharge summary. Justicifation of Admission Dx: Justifications for Admission: Justification of Admission Dx: Yes ILIANA COLVIN MD Jul 20, 2021 10:35
== END 2021-07-10 16:35 | DRG 392 ==
LOC: ER 23:31 → 6 SOUTH 07-09 02:25
PROVIDERS: ADMIT Family Medicine; ATTEND Family Medicine
DX: K21.9 Gastro-esophageal reflux disease without esophagitis (principal); E11.22 Type 2 diabetes mellitus with diabetic chronic kidney disease; E78.5 Hyperlipidemia, unspecified; F02.80 Dementia in other diseases classified elsewhere, unspecified severity, without behavioral disturbance, psychotic disturbance, mood disturbance, and anxiety; G30.9 Alzheimer's disease, unspecified; I12.9 Hypertensive chronic kidney disease with stage 1 through stage 4 chronic kidney disease, or unspecified chronic kidney disease; I25.10 Atherosclerotic heart disease of native coronary artery without angina pectoris; N18.30 Chronic kidney disease, stage 3 unspecified; S10.93XA Contusion of unspecified part of neck, initial encounter; X58.XXXA Exposure to other specified factors, initial encounter; Y93.89 Activity, other specified; Y92.89 Other specified places as the place of occurrence of the external cause; Y99.8 Other external cause status; F32.A Depression, unspecified; Z88.6 Allergy status to analgesic agent; Z88.8 Allergy status to other drugs, medicaments and biological substances; Z20.822 Contact with and (suspected) exposure to COVID-19
CPT/HCPCS: 36415; 70450; 71045; 72125; 80053; 80061; 81001; 82962; 83690; 83735; 83880; 84484; 85025; 85610; 85730; 87426; 93005; 93306; 96374; J1650; J1815; J3010; U0003; U0005; 97530-GP; 97535-GO; 99285-25; G0378